=== PATIENT | female | born 1950 | race Caucasian/White ===

== ENCOUNTER 2016-11-23 09:47 | Outpatient (CLI) | payer BC ==
[~2016-11-23] VITALS: Ht 165.1 cm; Wt 56.4 kg
[2016-11-23] MEDS ORDERED: SYNTHROID88 MCG PO (10:58)
[2016-11-23 11:04] VITALS: BP 135/71; Ht 165.1 cm; Wt 56.4 kg
--- NOTE | 2016-11-23 11:15 | NUR ---
IA INJECTION TO RIGHT ARM LOT#: [id number] EXP:02/02
== END 2016-11-23 11:35 | disposition home or self-care (01) ==
LOC: D.OPS 09:47
DX: M85.89 Other specified disorders of bone density and structure, multiple sites (principal)

== ENCOUNTER 2017-05-24 10:32 | Outpatient (CLI) | payer BC ==
[~2017-05-24] VITALS: Ht 165.1 cm; Wt 56.8 kg
[~2017-05-24 10:32] MED LIST: SYNTHROID88 MCG PO
[2017-05-24 12:39] VITALS: BP 129/71; Ht 165.1 cm; Wt 56.8 kg
== END 2017-05-24 12:00 | disposition home or self-care (01) ==
LOC: D.OPS 10:32
DX: M85.89 Other specified disorders of bone density and structure, multiple sites (principal)

== ENCOUNTER 2017-11-03 09:57 | Outpatient (CLI) | payer BC ==
[~2017-11-03] VITALS: Ht 165.1 cm; Wt 54.5 kg
[2017-11-03 10:42] VITALS: Ht 165.1 cm; Wt 54.5 kg
== END 2017-11-03 11:10 ==
LOC: D.OPS 09:57
DX: M85.80 Other specified disorders of bone density and structure, unspecified site (principal)

== ENCOUNTER → 2018-09-08 14:26 | Outpatient (CLI) | payer BC | END | disposition home or self-care (01) | LOC: D.MRI 14:26 | DX: R41.82 Altered mental status, unspecified (principal) ==